=== PATIENT | female | born 1970 | race Caucasian/White ===

== ENCOUNTER 2022-09-18 10:19 | Day surgery (SDC) | payer BC ==
[~2022-09-18 10:19] MED LIST: Acetaminophen 325 MG Tab PO SCH; Lactated Ringers 1,000 ML IV SCH; Lidocaine 1%/Sod Bicarbonate in NS 8.4% 1 ML Syringe IDERM PRN; Pregabalin 25 MG Cap PO SCH; Sodium Chloride 0.9% 10 ML Syringe FLUSH PRN; Sodium Chloride 0.9% 10 ML Syringe FLUSH SCH; oxyCODONE ER 10 MG TAB.ER PO SCH
[2022-09-18] MEDS ORDERED: Vancomycin 1 GM SDV ONE (11:55)
[2022-09-18] MEDS ORDERED: Tranexamic Acid 1,000 MG/10 ML Vial ONE (11:55)
[2022-09-18] MEDS ORDERED: Midazolam 1 MG/ML 2 ML SDV ONE (12:19)
[2022-09-18] MEDS ORDERED: Ondansetron 4 MG/2 ML SDV ONE (12:19)
[2022-09-18] MEDS ORDERED: fentaNYL 100 MCG/2 ML SDV ONE (12:19)
[2022-09-18] MEDS ORDERED: EPINEPHrine 1 MG/ML SDV ONE (12:24)
[2022-09-18] MEDS ORDERED: Ropivacaine 0.5% 5 MG/ML 30 ML SDV ONE (12:24)
[2022-09-18] MEDS ORDERED: Propofol 200 MG/20 ML SDV ONE ×3 (12:27→13:33)
[2022-09-18] MEDS ORDERED: ceFAZolin 2 GM Vial ONE (12:57)
[2022-09-18] MEDS ORDERED: Lactated Ringers 500 ML ONE (13:09)
[2022-09-18] MEDS: Vancomycin 1 GM SDV ONE ×2 (13:31→13:50)
[2022-09-18] MEDS: Tranexamic Acid 1,000 MG/10 ML Vial ONE ×2 (13:32→13:50)
[2022-09-18] MEDS: Morphine 8 MG, EPINEPHrine 0.3 MG, Cefuroxime 750 MG, Ketorolac 30 MG, Sodium Chloride ... PRN ×10 (13:32→13:45)
[2022-09-18] MEDS ORDERED: fentaNYL 100 MCG/2 ML SDV IVPUSH PRN (13:41)
[2022-09-18] MEDS ORDERED: Ondansetron 4 MG/2 ML SDV IVPUSH PRN (13:41)
[2022-09-18] MEDS ORDERED: HYDROmorphone 0.5 MG/0.5 ML Syringe IVPUSH PRN (13:41)
[2022-09-18] MEDS ORDERED: Dexmedetomidine 200 MCG/2 ML SDV ONE (13:57)
[2022-09-18] MEDS ORDERED: Ketorolac 30 MG/ML SDV ONE (14:17)
[2022-09-18] MEDS ORDERED: oxyCODONE 5 MG Tab PO SCH ×2 (15:33→17:15)
== END 2022-09-18 17:50 | disposition home or self-care (01) ==
LOC: JD.SDS 10:19
PROVIDERS: ATTEND Orthopaedic Surgery
DX: M17.12 Unilateral primary osteoarthritis, left knee (principal); G47.33 Obstructive sleep apnea (adult) (pediatric); F41.9 Anxiety disorder, unspecified; F32.A Depression, unspecified; E78.5 Hyperlipidemia, unspecified; G47.00 Insomnia, unspecified; K21.9 Gastro-esophageal reflux disease without esophagitis; E03.9 Hypothyroidism, unspecified; Z79.899 Other long term (current) drug therapy; Z98.890 Other specified postprocedural states; Z87.891 Personal history of nicotine dependence; Z79.890 Hormone replacement therapy; Z79.82 Long term (current) use of aspirin; Z98.1 Arthrodesis status
CPT/HCPCS: 0055T; 27447; 73560; 97110; 97116; 97161; A9270; C1713; C1776; J0171; J0690; J0697; J1885; J2250; J2270; J2405; J2704; J2795; J3010; J3370; J7120; 01402; 64450; 76942

== ENCOUNTER 2024-10-08 00:19 | Observation (INO) | payer BC ==
[2024-10-08] MEDS: Sodium Chloride 0.9% 10 ML Syringe FLUSH PRN (00:53)
[2024-10-08 01:03] LABS: BASOPHILS PERCENT AUTO 0.1 % (0.0-1.0); EOSINOPHILS ABSOLUTE AUTO 0.3 K/mm3 (0.0-0.4); HEMATOCRIT 44.3 % (37.0-47.0); HEMOGLOBIN 14.7 gm/dl (12.0-16.0); IMMATURE GRAN ABSOLUTE AUTO 0.09 K/mm3 (0.00-0.05); IMMATURE GRAN PERCENT AUTO 0.8 % (0.0-0.4); LYMPHOCYTES ABSOLUTE AUTO 1.3 K/mm3 (1.0-4.8); LYMPHOCYTES PERCENT AUTO 11.7 % (24.0-44.0); MEAN CORPUSCULAR HEMOGLOBIN 30.6 pg (28.0-32.0); MEAN CORPUSCULAR HGB CONC 33.2 g/dl (32.0-36.0); MEAN CORPUSCULAR VOLUME 92.3 fl (83.0-99.0); MEAN PLATELET VOLUME 10.9 fl (9.4-12.3); MONOCYTES ABSOLUTE AUTO 0.4 K/mm3 (0.0-0.8); MONOCYTES PERCENT AUTO 3.5 % (0.0-8.0); NEUTROPHILS ABSOLUTE AUTO 8.8 K/mm3 (1.8-7.7); NEUTROPHILS PERCENT AUTO 80.9 % (41.0-71.0); PLATELET COUNT,PLT 248 K/mm3 (150-400); WHITE BLOOD CELL COUNT,WBC 10.85 K/mm3 (3.9-11.3)
[2024-10-08 01:08] LABS: LACTIC ACID 0.8 mmol/L (0.4-2.0)
[2024-10-08 01:11] LABS: A/G RATIO 1.2 (1-2); ALBUMIN 3.9 g/dl (3.4-5.0); ANION GAP 11.7 (5-15); BILIRUBIN TOTAL 0.4 mg/dL (0.2-1.0); BUN/CREATININE RATIO 17.5 (14-18); CALCIUM 9.8 mg/dL (8.5-10.1); CREATININE 0.8 mg/dL (0.55-1.02); EST CRCL DRUG DOSING (CG) 66.5 mL/min; INR 0.94; MAGNESIUM 1.6 mg/dL (1.8-2.4); POTASSIUM,K 3.7 mEq/L (3.5-5.1); PROTEIN TOTAL,TP 7.3 g/dl (6.4-8.2)
[2024-10-08 01:13] LABS: PTT,PARTIAL THROMBOPLSTIN TIME 25.3 SECONDS (21.7-31.4)
[2024-10-08 01:24] LABS: APPEARANCE,URINE CLEAR (Clear); BILIRUBIN,URINE NEGATIVE (Negative); COLOR,URINE YELLOW (Yellow); GLUCOSE,URINE NEGATIVE (Negative); KETONES,URINE NEGATIVE (Negative); LEUKOCYTE ESTERASE,URINE NEGATIVE (Negative); NITRITE,URINE NEGATIVE (Negative); OCCULT BLOOD,URINE NEGATIVE (Negative); PROTEIN,URINE NEGATIVE (Negative); UROBILINOGEN,URINE 0.2 (0.2-1.0)
[2024-10-08] MEDS: hydrOXYzine HCl 25 MG Tab PO ONE (01:37)
[2024-10-08] MEDS ORDERED: Naloxone 0.4 MG/ML SDV IVPUSH PRN ×2 (02:42→03:50)
[2024-10-08] MEDS: Morphine 4 MG/ML Syringe IVPUSH ONE ×3 (02:53→12:41)
[2024-10-08 03:07] LABS: TSH 1.343 uIU/mL (0.358-3.74)
[2024-10-08] MEDS: diphenhydrAMINE 50 MG/ML SDV IVPUSH ONE ×2 (04:01→12:20)
[2024-10-08] MEDS: methylPREDNISolone Sodium Succinate 125 MG/2 ML SDV IVPUSH ONE (05:23)
[2024-10-08] MEDS: LORazepam 2 MG/ML SDV IVPUSH ONE (05:23)
[2024-10-08] MEDS ORDERED: Acetaminophen 325 MG Tab PO PRN ×2 (14:42→14:51)
[2024-10-08] MEDS ORDERED: Ondansetron 4 MG/2 ML SDV IV PRN (14:42)
[2024-10-08] MEDS: diphenhydrAMINE 50 MG/ML SDV IVPUSH PRN (15:12)
[2024-10-08] MEDS: Morphine 2 MG/ML SYRINGE IVPUSH PRN (15:12)
[2024-10-08] MEDS ORDERED: Denosumab 60 MG/1 ML Syringe SUBCUT ONE (15:38)
[2024-10-08] MEDS: oxyCODONE 5 MG Tab PO PRN (16:28)
[2024-10-08] MEDS: LORazepam 2 MG/ML SDV IVPUSH PRN (18:44)
[2024-10-08] MEDS: Famotidine 20 MG/2 ML SDV IVPUSH ONE (21:46)
[2024-10-09] MEDS: Enoxaparin 40 MG/0.4 ML Syringe SUBCUT SCH (09:36)
[2024-10-09] MEDS: Sodium Chloride 0.9% 1,000 ML IV SCH (09:52)
[2024-10-09] MEDS: methylPREDNISolone Sodium Succinate 40 MG/1 ML SDV IVPUSH ONE (12:49)
[2024-10-09] MEDS: traMADol 50 MG Tab PO PRN (12:57)
[2024-10-09] MEDS: Cetirizine 10 MG Tab PO SCH (12:57)
[2024-10-09] MEDS: Famotidine 20 MG Tab PO SCH (13:31)
== END 2024-10-09 15:58 | disposition home or self-care (01) ==
LOC: JD.ED 00:19 → JD.MS 12:54
PROVIDERS: ADMIT Family Medicine; ATTEND Family Medicine
DX: R21 Rash and other nonspecific skin eruption (principal); K21.9 Gastro-esophageal reflux disease without esophagitis; E03.9 Hypothyroidism, unspecified; E78.00 Pure hypercholesterolemia, unspecified; Z87.891 Personal history of nicotine dependence; Z79.890 Hormone replacement therapy; Z79.899 Other long term (current) drug therapy; Z91.048 Other nonmedicinal substance allergy status; Z91.041 Radiographic dye allergy status
CPT/HCPCS: 36415; 71045; 71250; 74176; 80053; 81003; 83605; 83690; 83735; 84443; 85025; 85610; 85652; 85730; 86140; 87651; 96372; 96374; 96375; 96376; 99284; A9270; G0378; J1200; J1650; J2060; J2270; J2919; J3490; J7030